=== PATIENT | male | born 1985 | race Two or more races ===

== ENCOUNTER 2016-08-17 12:59 | Inpatient (IN) | payer OTHER ==
[~2016-08-17] VITALS: Ht 175.3 cm; Wt 68.0 kg
[2016-08-17] MEDS ORDERED: Vancomycin 1.5gm/D5W 300ml 325 ML IVPB ONE (13:45)
[2016-08-17 14:39] LABS: BASOPHILS % (AUTO) 0.6 % (0.0-2.0); LYMPHOCYTES % (AUTO) 9.1 % (20.0-45.0); MEAN CORPUSCULAR HEMOGLOBIN 30.5 PG (27.0-31.0); MEAN CORPUSCULAR HGB CONC 34.1 G/DL (32.0-36.0); MEAN CORPUSCULAR VOLUME 89 FL (80-99); MEAN PLATELET VOLUME 8.4 FL (6.5-10.1); NEUTROPHILS % (AUTO) 82.2 % (45.0-75.0); PLATELET COUNT 229 K/UL (150-450); RED BLOOD COUNT 4.66 M/UL (4.70-6.10); RED CELL DISTRIBUTION WIDTH 11.5 % (11.6-14.8); WHITE BLOOD COUNT 17.2 K/UL (4.8-10.8)
[2016-08-17 14:54] LABS: ALANINE AMINOTRANSFERASE 25 U/L (3-41); ALBUMIN/GLOBULIN RATIO 0.9 (1.0-2.7); ANION GAP 15 (5-15); ASPARTATE AMINO TRANSFERASE 20 U/L (5-40); CARBON DIOXIDE 27 mEQ/L (20-30); CHLORIDE 92 mEQ/L (98-107); GLOMERULAR FILTRATION RATE > 60 mL/min (>60); HEMOLYSIS 4; POTASSIUM 3.5 mEQ/L (3.4-4.9); SODIUM 134 mEQ/L (135-145); TOTAL PROTEIN 7.8 g/dL (6.6-8.7)
[2016-08-17] MEDS ORDERED: Morphine Sulfate 4mg/ml Inj IVP ONE (15:00)
[2016-08-17] MEDS ORDERED: Ampicillin/Sulbactam Sod 1.5 GM in NS 55 ML IVPB SCH (15:00)
--- NOTE | 2016-08-17 15:01 | Emergency Room Report ---
History of Present Illness General Chief Complaint: Skin Rash/Abscess Source: Patient Present Illness HPI 31 YO male Pt. presents to the ED c/o 05/10 pain, swelling, and erythema of the right hand times one and a half days with progression up the arm. Patient reports fevers and chills. Pt reports his hand is hot to the touch. denies hx of moderate trauma or fall. 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 Pt. states he is UTD with vaccinations, and denies immune compromise, or iv drug use. Denies numbness tingling or loss of sensation or gross motor movements of the extremities, incontinence of bowel or bladder. Denies CP, Palpitations, LOC, AMS , dizziness, Changes in Vision, Sensation, paresthesias, or a sudden severe headache. Allergies: Coded Allergies: No Known Allergies (Unverified , 08/17/16) Patient History Past Medical History: see triage record Past Surgical History: none Pertinent Family History: none Immunizations: UTD Reviewed Nursing Documentation: PMH: Agreed, PSxH: Agreed Nursing Documentation-PMH Past Medical History: No Stated History Review of Systems All Other Systems: negative except mentioned in HPI Physical Exam Vital Signs Date Time Temp Pulse Resp B/P Pulse Ox O2 Delivery O2 Flow Rate FiO2 08/17/16 13:13 99.1 107 18 108/70 99 Room Air Sp02 EP Interpretation: reviewed, abnormal - tachycardic at 107 PBM General Appearance: no apparent distress, alert, GCS 15, non-toxic Head: normocephalic, atraumatic Eyes: bilateral eye PERRL, bilateral eye normal inspection ENT: hearing grossly normal, normal pharynx, no angioedema, normal voice Neck: full range of motion, supple/symm/no masses Respiratory: chest non-tender, lungs clear, normal breath sounds, speaking full sentences Cardiovascular #1: regular rate, rhythm, no edema Cardiovascular #2: 2+ carotid (R), 2+ carotid (L), 2+ radial (R), 2+ radial (L) , 2+ dorsalis pedis (R), 2+ dorsalis pedis (L) Gastrointestinal: normal bowel sounds, non tender, soft, no guarding, no rebound Rectal: deferred Genitourinary: normal inspection, no CVA tenderness Musculoskeletal: back normal, gait/station normal, normal range of motion, no calf tenderness, inflammation - right hand and wrist. , tender - Significant tenderness to light palpation of the right hand and wrist. Neurologic: alert, oriented x3, responsive, motor strength/tone normal, sensory intact, speech normal Psychiatric: judgement/insight normal, memory normal, mood/affect normal, no suicidal/homicidal ideation Skin: normal color, no rash, warm/dry, well hydrated, other - swelling, erythema and increased temperature to palpation of the right hand radiating up into the mid-right fore arm, there is streaking noted up into the right axilla, no LAD Lymphatic: no adenopathy Medical Decision Making PA Attestation Dr. Velez is my supervising Physician whom patient management has been discussed with. Diagnostic Impression: Primary Impression: Cellulitis Qualified Codes: L03.113 - Cellulitis of right upper limb Additional Impression: Lymphangitis ER Course Pt. presents to the ED c/o pain, swelling, and erythema of the right hand times one and a half days with progression up the arm. Patient reports fevers and chills. Ddx considered but are not limited to cellulitis, lymphangitis, abscess, fracture, DVT, gout/pseudo-gout just to name a few. Vital signs: are WNL, pt. is afebrile H&PE are most consistent with lymphangitis and cellulitis of the right hand. ORDERS: -CBC: elevated WBC's at 17.2 -CMP: mild hypochloremia and hyponatremia - corrected by fluid bolus. -Lactic acid: WNL 0.80 - Blood Cultures: pending ED INTERVENTIONS: -IV access established -1000 cc NS Bolus - Vancomycin IV -Unasyn IV 1.5 grams -Flagyl IV 500mg -4mg Morphine IV for pain. DISPOSITION: at this time pt. will be admitted to Dr. Campbell for cellulitis and lymphangitis. Dr. Campbell agreed to admit the pt. and to continue pt. care management. Labs Test 08/17/16 14:25 White Blood Count 17.2 K/UL (4.8-10.8) Red Blood Count 4.66 M/UL (4.70-6.10) Hemoglobin 14.2 G/DL (14.2-18.0) Hematocrit 41.6 % (42.0-52.0) Mean Corpuscular Volume 89 FL (80-99) Mean Corpuscular Hemoglobin 30.5 PG (27.0-31.0) Mean Corpuscular Hemoglobin Concent 34.1 G/DL (32.0-36.0) Red Cell Distribution Width 11.5 % (11.6-14.8) Platelet Count 229 K/UL (150-450) Mean Platelet Volume 8.4 FL (6.5-10.1) Neutrophils (%) (Auto) 82.2 % (45.0-75.0) Lymphocytes (%) (Auto) 9.1 % (20.0-45.0) Monocytes (%) (Auto) 7.0 % (1.0-10.0) Eosinophils (%) (Auto) 1.0 % (0.0-3.0) Basophils (%) (Auto) 0.6 % (0.0-2.0) Sodium Level 134 mEQ/L (135-145) Potassium Level 3.5 mEQ/L (3.4-4.9) Chloride Level 92 mEQ/L (98-107) Carbon Dioxide Level 27 mEQ/L (20-30) Anion Gap 15 (5-15) Blood Urea Nitrogen 7 mg/dL (7-23) Creatinine 1.0 mg/dL (0.7-1.2) Estimat Glomerular Filtration Rate > 60 mL/min (>60) Glucose Level 117 mg/dL (74-106) Lactic Acid Level 0.80 mmol/L (0.66-2.22) Calcium Level 9.0 mg/dL (8.6-10.2) Total Bilirubin 0.7 mg/dL (0.0-1.2) Aspartate Amino Transf (AST/SGOT) 20 U/L (5-40) Alanine Aminotransferase (ALT/SGPT) 25 U/L (3-41) Alkaline Phosphatase 76 U/L (40-129) Total Protein 7.8 g/dL (6.6-8.7) Albumin 3.7 g/dL (3.5-5.2) Globulin 4.1 g/dL Albumin/Globulin Ratio 0.9 (1.0-2.7) Last Vital Signs Date Time Temp Pulse Resp B/P Pulse Ox O2 Delivery O2 Flow Rate FiO2 08/17/16 13:13 99.1 107 18 108/70 99 Room Air Disposition: ADMITTED INPATIENT Condition: Stable Referrals: NON PHYSICIAN (PCP) Komal Wang Aug 17, 2016 15:01
[2016-08-17] MEDS ORDERED: metroNIDAZOLE 500mg 100 ML IVPB ONE (15:15)
[2016-08-17] MEDS ORDERED: Unasyn 1.5gm Vial ONE (16:04)
[2016-08-17] MEDS ORDERED: AMPICILLIN IVPB SCH (16:30)
[2016-08-17] MEDS ORDERED: SULBACTAM SOD IVPB SCH (16:30)
[2016-08-17] MEDS ORDERED: NS IVPB SCH (16:30)
[2016-08-17 17:40] VITALS: BP 111/69
[2016-08-17] MEDS ORDERED: Mylanta II UD 30ml ORAL PRN (17:45)
[2016-08-17] MEDS ORDERED: Morphine Sulfate 2mg/ml Inj IVP PRN (17:45)
[2016-08-17] MEDS ORDERED: LORazepam Inj 2mg/ml 1ml IV PRN (17:45)
[2016-08-17] MEDS ORDERED: Miralax 17gm pkt ORAL PRN (17:45)
[2016-08-17] MEDS ORDERED: Zolpidem 5mg tab ORAL PRN (17:45)
[2016-08-17 18:10] VITALS: BP 117/71
[2016-08-17 19:51] VITALS: BP 111/68
[2016-08-17] MEDS: Cefepime HCl 1 GM in D5W 55 ML IVPB SCH (21:16)
[2016-08-17] MEDS: Heparin 5000 units/ml inj SUBQ SCH (21:19)
[2016-08-17] MEDS: Vancomycin 1gm/D5W 275ml IVPB SCH ×2 (23:30)
[2016-08-18] VITALS: BP 106/58
[2016-08-18 04:00] VITALS: BP 110/62
[2016-08-18] MEDS: Cefepime HCl 1 GM in D5W 55 ML IVPB SCH ×2 (05:26→13:44)
[2016-08-18 06:30] LABS: BASOPHILS % (AUTO) 0.4 % (0.0-2.0); LYMPHOCYTES % (AUTO) 14.2 % (20.0-45.0); MEAN CORPUSCULAR HEMOGLOBIN 30.9 PG (27.0-31.0); MEAN CORPUSCULAR HGB CONC 34.8 G/DL (32.0-36.0); MEAN CORPUSCULAR VOLUME 89 FL (80-99); MEAN PLATELET VOLUME 8.9 FL (6.5-10.1); MONOCYTES % (AUTO) 9.2 % (1.0-10.0); NEUTROPHILS % (AUTO) 73.3 % (45.0-75.0); PLATELET COUNT 213 K/UL (150-450); RED BLOOD COUNT 4.15 M/UL (4.70-6.10); RED CELL DISTRIBUTION WIDTH 11.1 % (11.6-14.8); WHITE BLOOD COUNT 12.1 K/UL (4.8-10.8)
[2016-08-18 07:12] LABS: HEMOGLOBIN A1C 5.3 % (< 6.0)
[2016-08-18 07:20] LABS: ALANINE AMINOTRANSFERASE 23 U/L (3-41); ALBUMIN/GLOBULIN RATIO 0.9 (1.0-2.7); ANION GAP 14 (5-15); ASPARTATE AMINO TRANSFERASE 19 U/L (5-40); CALCIUM 8.8 mg/dL (8.6-10.2); CARBON DIOXIDE 27 mEQ/L (20-30); CHLORIDE 96 mEQ/L (98-107); CHOLESTEROL 112 mg/dL (< 200); CHOLESTEROL/HDL RATIO 3.5 (3.3-4.4); CREATININE 0.8 mg/dL (0.7-1.2); GLOMERULAR FILTRATION RATE > 60 mL/min (>60); HEMOLYSIS 1; LDL CHOLESTEROL (CALC.) 63 mg/dL (60-99); POTASSIUM 3.6 mEQ/L (3.4-4.9); SODIUM 137 mEQ/L (135-145); TOTAL PROTEIN 6.9 g/dL (6.6-8.7)
[2016-08-18 08:00] VITALS: BP 113/66
[2016-08-18] MEDS: Heparin 5000 units/ml inj SUBQ SCH ×2 (09:00→20:23)
[2016-08-18] MEDS: Vancomycin 1gm/D5W 275ml IVPB SCH ×2 (11:58)
[2016-08-18 12:00] VITALS: BP 120/68
[2016-08-18 16:00] VITALS: BP 104/65
--- NOTE | 2016-08-18 17:47 | History and Physical ---
History of Present Illness General Date patient seen: Aug 18, 2016 Reason for Hospitalization: Skin Rash/Abscess Present Illness HPI 31 YO male Pt. presents to the ED c/o 10/10 pain, swelling, and erythema of the right hand times one and a half days with progression up the arm. He had also fevers and chills. He was diagnosed to have cellulitis of right hand with lymphadenitis and admitted for further work up. Allergies: Uncoded Allergies: cats (Allergy, Unknown, 08/17/16) seafood (Allergy, Unknown, 08/17/16) Patient History Healthcare decision maker Resuscitation status Advanced Directive on File Past Medical/Surgical History Past Medical/Surgical History: (1) No pertinent past medical history Review of Systems All Other Systems: negative except mentioned in HPI Physical Exam Lines, tubes and drains: peripheral, central line HEENT: normocephalic, atraumatic Neck: non-tender Respiratory/Chest: chest wall non-tender, lungs clear Cardiovascular/Chest: normal peripheral pulses, normal rate Abdomen: normal bowel sounds, non tender Genitourinary/Rectal: normal genital exam Last 24 Hour Vital Signs Date Time Temp Pulse Resp B/P Pulse Ox O2 Delivery O2 Flow Rate FiO2 08/18/16 16:00 98.2 86 20 104/65 100 Room Air 08/18/16 12:00 98.2 84 20 120/68 100 Room Air 08/18/16 08:00 97.3 85 20 113/66 100 Room Air 08/18/16 04:00 98.0 90 20 110/62 99 Room Air 08/18/16 00:00 98.2 94 22 106/58 95 Room Air 08/17/16 20:29 99.7 08/17/16 19:51 99.7 99 18 111/68 99 Room Air 08/17/16 18:10 99.7 105 18 117/71 99 Room Air Intake and Output 08/17/16 08/18/16 19:00 07:00 Intake Total 30 ml 585 ml Balance 30 ml 585 ml Intake Oral 30 ml 200 ml IV Total 385 ml # Voids 3 Laboratory Tests Test 08/18/16 04:30 White Blood Count 12.1 K/UL (4.8-10.8) H Red Blood Count 4.15 M/UL (4.70-6.10) L Hemoglobin 12.9 G/DL (14.2-18.0) L Hematocrit 37.0 % (42.0-52.0) L Mean Corpuscular Volume 89 FL (80-99) Mean Corpuscular Hemoglobin 30.9 PG (27.0-31.0) Mean Corpuscular Hemoglobin Concent 34.8 G/DL (32.0-36.0) Red Cell Distribution Width 11.1 % (11.6-14.8) L Platelet Count 213 K/UL (150-450) Mean Platelet Volume 8.9 FL (6.5-10.1) Neutrophils (%) (Auto) 73.3 % (45.0-75.0) Lymphocytes (%) (Auto) 14.2 % (20.0-45.0) L Monocytes (%) (Auto) 9.2 % (1.0-10.0) Eosinophils (%) (Auto) 3.0 % (0.0-3.0) Basophils (%) (Auto) 0.4 % (0.0-2.0) Sodium Level 137 mEQ/L (135-145) Potassium Level 3.6 mEQ/L (3.4-4.9) Chloride Level 96 mEQ/L (98-107) L Carbon Dioxide Level 27 mEQ/L (20-30) Anion Gap 14 (5-15) Blood Urea Nitrogen 4 mg/dL (7-23) L Creatinine 0.8 mg/dL (0.7-1.2) Estimat Glomerular Filtration Rate > 60 mL/min (>60) Glucose Level 115 mg/dL (74-106) H Hemoglobin A1c 5.3 % (< 6.0) Calcium Level 8.8 mg/dL (8.6-10.2) Total Bilirubin 0.5 mg/dL (0.0-1.2) Aspartate Amino Transf (AST/SGOT) 19 U/L (5-40) Alanine Aminotransferase (ALT/SGPT) 23 U/L (3-41) Alkaline Phosphatase 74 U/L (40-129) Total Protein 6.9 g/dL (6.6-8.7) Albumin 3.4 g/dL (3.5-5.2) L Globulin 3.5 g/dL Albumin/Globulin Ratio 0.9 (1.0-2.7) L Triglycerides Level 84 mg/dL (< 150) Cholesterol Level 112 mg/dL (< 200) LDL Cholesterol 63 mg/dL (60-99) HDL Cholesterol 32 mg/dL (> 60) Cholesterol/HDL Ratio 3.5 (3.3-4.4) Thyroid Stimulating Hormone (TSH) 1.770 uIU/mL (0.300-4.500) Height (Feet): 5 Height (Inches): 9.00 Weight (Pounds): 150 Medications Current Medications Medications (Trade) Dose Ordered Sig/Sam Route PRN Reason Start Time Stop Time Status Last Admin Dose Admin Acetaminophen (Tylenol) 650 mg Q4H PRN ORAL fever 08/17/16 17:45 09/16/16 17:44 Al Hydroxide/Mg Hydroxide (Mylanta II) 30 ml Q6H PRN ORAL dyspepsia 08/17/16 17:45 09/16/16 17:44 Cefepime HCl 1 gm/ Dextrose 55 ml @ 55 mls/hr EVERY 8 HOURS IVPB 08/17/16 22:00 08/24/16 21:59 08/18/16 13:44 Dextrose (Dextrose 50%) STAT PRN IV Hypoglycemia 08/17/16 17:45 09/16/16 17:44 Heparin Sodium (Porcine) (Heparin 5000 units/ml) 5,000 units EVERY 12 HOURS SUBQ 08/17/16 21:00 09/16/16 20:59 08/17/16 21:19 Lorazepam (Ativan 2mg/ml 1ml) 0.5 mg Q4H PRN IV For Anxiety 08/17/16 17:45 08/24/16 17:44 Morphine Sulfate (Morphine Sulfate) 1 mg EVERY 4 HOURS PRN IVP For Pain 08/17/16 17:45 08/24/16 17:44 08/17/16 19:39 Ondansetron HCl (Zofran) 4 mg Q6H PRN IVP Nausea & Vomiting 08/17/16 17:45 09/16/16 17:44 Polyethylene Glycol (Miralax) 17 gm HSPRN PRN ORAL Constipation 08/17/16 17:45 09/16/16 17:44 Vancomycin HCl 1 ea 1 ea DAILY PRN MISC Per rx protocol 08/17/16 17:45 09/16/16 17:44 Vancomycin HCl/ Dextrose (Vancomycin/D5W) 275 ml @ 183.708 mls/hr Q12HR@0000,1200 IVPB 08/18/16 00:00 08/23/16 00:00 08/18/16 11:58 Zolpidem Tartrate (Ambien) 5 mg HSPRN PRN ORAL Insomnia 08/17/16 17:45 09/16/16 17:44 Assessment/Plan Problem List: (1) Lymphangitis ICD Codes: I89.1 - Lymphangitis SNOMED: [id number] (2) Cellulitis ICD Codes: L03.90 - Cellulitis, unspecified SNOMED: [id number] Qualifiers: Qualified Codes: L03.113 - Cellulitis of right upper limb Assessment/Plan broad spectrum antibiotics check wbc dc in 1-2 days with oral antibiotics IVONNE PETERSEN Aug 18, 2016 17:47
--- NOTE | 2016-08-18 18:07 | Consultation ---
Consult Note Consult Note ID CONSULT: Dict# [id number] Assessment/Plan ASSESSMENT: 31 y/o right-handed male with: // RUE cellulitis / lymphangitis, m/l strep, doubt GNR - improving, BCx NGTD - a/v doppler: neg stenosis or DVT // Leukocytosis - improved, afebrile // No ABX allergies // Full Code PLAN: - continue IV vancomycin d# 2 / 10, change cefepime d# 2 to clindamycin d# 1. If further interval improvement, may be able to transition to PO as early as tomorrow - f/u cultures - monitor CBC, temperatures - monitor BMP d/w Dr. Henry Thanks! Will follow NELSY WESTON Aug 18, 2016 18:07
[2016-08-18] MEDS: Clindamycin 900mg 50 ML IV SCH (19:11)
[2016-08-18 20:01] VITALS: BP 117/68
--- NOTE | 2016-08-18 22:27 | Consultation ---
DATE OF CONSULTATION: 08/18/2016 INFECTIOUS DISEASE CONSULTATION CONSULTING PHYSICIAN: John Novak M.D. REQUESTING PHYSICIAN: Randi Henry M.D. REASON FOR CONSULTATION: Cellulitis and lymphangitis. HISTORY OF PRESENT ILLNESS: This is a 31-year-old, otherwise healthy male, admitted on 08/17/2016 with right upper extremity swelling, pain and erythema. He denies bladder trauma. No evidence of cellulitis and lymphangitis. Vascular imaging shows no stenosis or DVT. Blood cultures, no growth to date. He has been improving leukocytosis and is afebrile. He is currently receiving empiric vancomycin and cefepime and ID now consulted to assist in management. PAST MEDICAL HISTORY: None. PAST SURGICAL HISTORY: None. ALLERGIES: Cat and seafood. MEDICATIONS: 1. Vancomycin. 2. Cefepime. 3. Subcutaneous heparin. FAMILY HISTORY: Noncontributory. SOCIAL HISTORY: The patient works installing cable. Social alcohol use. REVIEW OF SYSTEMS: As per history of present illness. Ten systems reviewed. All pertinent positives and negatives noted. PHYSICAL EXAMINATION: VITAL SIGNS: Maximum temperature 99.7 degrees, blood pressure 104/65, heart rate 80, respiratory rate 20, and saturating 100% on room air. GENERAL: No apparent distress. Nontoxic appearing. CARDIOVASCULAR: Regular rate and rhythm. No murmurs. PULMONARY: Clear to auscultation. ABDOMEN: Bowel sounds present. Soft, nondistended, and nontender. EXTREMITIES: Right upper extremity erythema, edema, and warmth spreading proximally. NEUROLOGIC: Alert and oriented x3, nonfocal. LABORATORY DATA: White blood cell count 12.1 decreased from 17.2, hemoglobin 12.9, platelets 213,000. Sodium 137, potassium 3.6, chloride 96, bicarbonate 27, BUN 4 and creatinine 0.8. TSH and liver function tests are within normal limits. MICROBIOLOGY: On 08/17/2016, blood culture, no growth to date. IMAGING: On 08/18/2016, right upper extremity arterial and venous Doppler is negative for cyanosis or DVT. ASSESSMENT: 1. Right upper extremity cellulitis and lymphangitis most likely streptococcal in origin. Doubt gram-negative rods. Improving with current therapy and blood culture no growth to date. No evidence of arterial stenosis or deep vein thrombosis. 2. Leukocytosis, improved and afebrile. 3. No antibiotic allergies. 4. Full Code. PLAN: 1. Continue IV vancomycin day #2 and change cefepime to clindamycin. If further interval improvement may be able to transition oral therapy as earliest tomorrow. 2. Follow up cultures. 3. Monitor CBC and temperatures. 4. Monitor BMP. 5. Discussed with Dr. Henry. Thank you. We will follow. John Novak M.D. DR: SANJUANITA JOB#: [id number] CC: Randi Henry M.D.; Fax#: [phone] Miranda M.D; Fax#: [phone]
[2016-08-19] VITALS: BP 104/63
[2016-08-19] MEDS: Vancomycin 1gm/D5W 275ml IVPB SCH ×6 (01:02→16:00)
[2016-08-19 04:00] VITALS: BP 114/73
[2016-08-19] MEDS: Clindamycin 900mg 50 ML IV SCH ×2 (05:17→14:00)
[2016-08-19 08:49] VITALS: BP 103/56
[2016-08-19] MEDS: Heparin 5000 units/ml inj SUBQ SCH (08:58)
[2016-08-19 12:20] VITALS: BP 103/56
--- NOTE | 2016-08-19 15:13 | Infectious Diseases Prog Note ---
Assessment/Plan Assessment/Plan ASSESSMENT: 31 y/o right-handed male with: // RUE cellulitis / lymphangitis, m/l strep, doubt GNR - improving, BCx NGTD - a/v doppler: neg stenosis or DVT // Leukocytosis - improved, afebrile // No ABX allergies // Full Code PLAN: - Ok to DC on PO bactrim + keflex x7 more days - Rx on chart, reconciled. Will continue IV vancomycin d# 3 / 10, clindamycin d# 2 while still inpt ( 08/18 SP cefepime d# 2 ) - continue to monitor for abscess formation - d/w pt, seek medical attention if no further improvement - f/u fjnal cultures - monitor CBC, temperatures - monitor BMP Subjective Allergies: Uncoded Allergies: cats (Allergy, Unknown, 08/17/16) seafood (Allergy, Unknown, 08/17/16) Subjective remains afebrile. improved Objective Vital Signs Last 24 Hour Vital Signs Date Time Temp Pulse Resp B/P Pulse Ox O2 Delivery O2 Flow Rate FiO2 08/19/16 13:45 97.0 08/19/16 12:20 97.0 73 20 103/56 100 Room Air 08/19/16 08:49 97.5 81 20 103/56 100 Room Air 08/19/16 04:00 97.9 79 18 114/73 100 Room Air 08/19/16 00:00 98.2 79 20 104/63 100 Room Air 08/18/16 20:01 98.1 80 20 117/68 100 Room Air 08/18/16 16:00 98.2 86 20 104/65 100 Room Air Height (Feet): 5 Height (Inches): 9.00 Weight (Pounds): 150 General Appearance: no acute distress Respiratory/Chest: no respiratory distress Cardiovascular: normal rate, regular rhythm Abdomen: normal bowel sounds, soft, non tender, non distended Extremities: other - RUE erythema, edema, warmth improved Microbiology Date/Time Source Procedure Growth Status 08/17/16 14:25 Blood Blood Culture - Preliminary NO GROWTH AFTER 24 HOURS Resulted Laboratory Tests Test 08/18/16 23:00 Vancomycin Level Trough 4.3 ug/mL (5.0-12.0) L Current Medications Medications (Trade) Dose Ordered Sig/Sam Route PRN Reason Start Time Stop Time Status Last Admin Dose Admin Acetaminophen (Tylenol) 650 mg Q4H PRN ORAL fever 08/17/16 17:45 09/16/16 17:44 Al Hydroxide/Mg Hydroxide (Mylanta II) 30 ml Q6H PRN ORAL dyspepsia 08/17/16 17:45 09/16/16 17:44 Clindamycin HCl/ Dextrose 50 ml @ 100 mls/hr Q8HR IV 08/18/16 20:00 08/25/16 19:59 08/19/16 05:17 Dextrose (Dextrose 50%) STAT PRN IV Hypoglycemia 08/17/16 17:45 09/16/16 17:44 Heparin Sodium (Porcine) (Heparin 5000 units/ml) 5,000 units EVERY 12 HOURS SUBQ 08/17/16 21:00 09/16/16 20:59 08/19/16 08:58 Lorazepam (Ativan 2mg/ml 1ml) 0.5 mg Q4H PRN IV For Anxiety 08/17/16 17:45 08/24/16 17:44 Morphine Sulfate (Morphine Sulfate) 1 mg EVERY 4 HOURS PRN IVP For Pain 08/17/16 17:45 08/24/16 17:44 08/17/16 19:39 Ondansetron HCl (Zofran) 4 mg Q6H PRN IVP Nausea & Vomiting 08/17/16 17:45 09/16/16 17:44 Polyethylene Glycol (Miralax) 17 gm HSPRN PRN ORAL Constipation 08/17/16 17:45 09/16/16 17:44 Vancomycin HCl 1 ea 1 ea DAILY PRN MISC Per rx protocol 08/17/16 17:45 09/16/16 17:44 Vancomycin HCl/ Dextrose (Vancomycin/D5W) 275 ml @ 183.708 mls/hr Q8H IVPB 08/19/16 08:00 08/24/16 07:59 08/19/16 08:00 Zolpidem Tartrate (Ambien) 5 mg HSPRN PRN ORAL Insomnia 08/17/16 17:45 09/16/16 17:44 NELSY WESTON Aug 19, 2016 15:13
[2016-08-19] MEDS ORDERED: BACTRIM DS TAB1 EAC1 ORAL (15:18)
[2016-08-19] MEDS ORDERED: KEFLEX500 MG ORAL (15:18)
[2016-08-19 16:00] VITALS: BP 118/76
[2016-08-19] MEDS ORDERED: NS 275ml ONE (16:59)
[2016-08-19] MEDS ORDERED: Tubing IV Secondary IV ONE ×2 (16:59)
--- NOTE | 2016-08-19 17:56 | Pulmonology Progress Note ---
Assessment/Plan Problems: (1) Lymphangitis (2) Cellulitis Assessment/Plan improving ok to dc with oral antibiotics Subjective Constitutional: Reports: no symptoms HEENT: Repors: no symptoms Respiratory: Reports: no symptoms Allergies: Uncoded Allergies: cats (Allergy, Unknown, 08/17/16) seafood (Allergy, Unknown, 08/17/16) Objective Last 24 Hour Vital Signs Date Time Temp Pulse Resp B/P Pulse Ox O2 Delivery O2 Flow Rate FiO2 08/19/16 13:45 97.0 08/19/16 12:20 97.0 73 20 103/56 100 Room Air 08/19/16 08:49 97.5 81 20 103/56 100 Room Air 08/19/16 04:00 97.9 79 18 114/73 100 Room Air 08/19/16 00:00 98.2 79 20 104/63 100 Room Air 08/18/16 20:01 98.1 80 20 117/68 100 Room Air Intake and Output 08/18/16 08/19/16 19:00 07:00 Intake Total 1310.000 ml 375.000 ml Balance 1310.000 ml 375.000 ml Intake Oral 980 ml IV Total 330.000 ml 375.000 ml # Voids 5 3 General Appearance: no acute distress HEENT: normocephalic Respiratory/Chest: chest wall non-tender, lungs clear Cardiovascular: normal peripheral pulses, regular rhythm Abdomen: normal bowel sounds Extremities: no cyanosis 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, abnormal gait Microbiology Date/Time Source Procedure Growth Status 08/17/16 14:25 Blood Blood Culture - Preliminary NO GROWTH AFTER 24 HOURS Resulted Laboratory Tests 08/18/16 23:00: Vancomycin Level Trough 4.3L Current Medications Medications (Trade) Dose Ordered Sig/Sam Route PRN Reason Start Time Stop Time Status Last Admin Dose Admin Acetaminophen (Tylenol) 650 mg Q4H PRN ORAL fever 08/17/16 17:45 09/16/16 17:44 Al Hydroxide/Mg Hydroxide (Mylanta II) 30 ml Q6H PRN ORAL dyspepsia 08/17/16 17:45 09/16/16 17:44 Clindamycin HCl/ Dextrose 50 ml @ 100 mls/hr Q8HR IV 08/18/16 20:00 08/25/16 19:59 08/19/16 05:17 Dextrose (Dextrose 50%) STAT PRN IV Hypoglycemia 08/17/16 17:45 09/16/16 17:44 Heparin Sodium (Porcine) (Heparin 5000 units/ml) 5,000 units EVERY 12 HOURS SUBQ 08/17/16 21:00 09/16/16 20:59 08/19/16 08:58 Lorazepam (Ativan 2mg/ml 1ml) 0.5 mg Q4H PRN IV For Anxiety 08/17/16 17:45 08/24/16 17:44 Morphine Sulfate (Morphine Sulfate) 1 mg EVERY 4 HOURS PRN IVP For Pain 08/17/16 17:45 08/24/16 17:44 08/17/16 19:39 Ondansetron HCl (Zofran) 4 mg Q6H PRN IVP Nausea & Vomiting 08/17/16 17:45 09/16/16 17:44 Polyethylene Glycol (Miralax) 17 gm HSPRN PRN ORAL Constipation 08/17/16 17:45 09/16/16 17:44 Vancomycin HCl 1 ea 1 ea DAILY PRN MISC Per rx protocol 08/17/16 17:45 09/16/16 17:44 Vancomycin HCl/ Dextrose (Vancomycin/D5W) 275 ml @ 183.708 mls/hr Q8H IVPB 08/19/16 08:00 08/24/16 07:59 08/19/16 08:00 Zolpidem Tartrate (Ambien) 5 mg HSPRN PRN ORAL Insomnia 08/17/16 17:45 09/16/16 17:44 IVONNE PETERSEN Aug 19, 2016 17:56
--- NOTE | 2016-08-20 12:16 | Discharge Summary ---
Discharge Summary Hospital Course Date of Admission Aug 17, 2016 at 16:15 Date of Discharge Aug 19, 2016 at 17:00 Admitting Diagnosis lymphangitis/ cellulitis LACHELLE Chapa is a 31 year old male who was admitted on Aug 17, 2016 at 16:15 for Lymphangitis/Cellulitis Hospital Course [id number] Discharge Discharge Disposition Patient was discharged to Home (01) Discharge Diagnoses: Heather Muir NP Aug 20, 2016 12:16
--- NOTE | 2016-08-21 02:27 | Discharge Summary 2 SIG ---
DATE OF ADMISSION: 08/17/2016 DATE OF DISCHARGE: 08/19/2016 GRAPE CRUSHER: John Novak M.D. BRIEF HOSPITAL COURSE: The patient is a 31-year-old male, who presented to ED complaining of 10/10 pain with swelling and erythema of the right hand, started [id number] days ago with progression of symptoms radiating up to the arm. He also had fevers and chills. On evaluation at ED, laboratories showed leukocytosis. WBC was elevated to 17.2. CMP showed mild hypochloremia and hyponatremia. The patient was given intravenous bolus and was started on IV antibiotic. He was admitted to medical floor. Dr. Novak was consulted. Vascular imaging showed no stenosis or DVT. Right upper extremity cellulitis and lymphangitis most likely streptococcal in origin. Blood culture did not isolate any growth. He was continued on IV vancomycin and cefepime was changed to clindamycin. The patient remained afebrile and was improving. He was discharged on p.o. Bactrim and Keflex for one week. FINAL DIAGNOSIS: Right upper arm cellulitis and lymphangitis, most likely streptococcal in origin. Randi Henry M.D. I have been assigned to dictate discharge summary on this account and I was not involved in the patient's management. Heather Muir N.P. DR: CHAD JOB#: [id number] CC: GERTRUDIS
--- NOTE | 2016-08-21 17:09 | Diagnostic Imaging Report ---
APPROVED REPORT CPT Code: 51176 Present Symptoms Comments: Swelling RIGHT UPPER EXTREMITY: Imaging reveals patency of the internal jugular, subclavian, axillary and brachial veins. The cephalic and basilic veins are also within normal limits. The Doppler indicates normal spontaneous flow within these venous segments.
--- NOTE | 2016-08-21 17:09 | Diagnostic Imaging Report ---
APPROVED REPORT CPT Code: 97978 Symptoms Other : Swelling RIGHT UPPER EXTREMITY: Imaging of the subclavian, axillary, brachial, radial and ulnar arteries is within normal limits. There is no evidence of stenosis or occlusions within these segments. The Doppler waveforms of the right upper extremity are multiphasic, consistent with normal inflow to the right upper extremity.
== END 2016-08-19 17:00 | disposition home or self-care (01) | DRG 383 ==
LOC: ENRESERVTM → ENRESERVDT → EMR 13:25 → 4W 16:15 → EDBEDREQ 17:01 → 4W 08-18 14:08
DX: L03.113 Cellulitis of right upper limb (principal); E87.1 Hypo-osmolality and hyponatremia; E87.8 Other disorders of electrolyte and fluid balance, not elsewhere classified; B95.5 Unspecified streptococcus as the cause of diseases classified elsewhere; D72.829 Elevated white blood cell count, unspecified
CPT/HCPCS: 36415; 80053; 80061; 80202; 83036; 83605; 84443; 85025; 87040; 93931; 93971; S0077